=== PATIENT | male | born 1940 | race Caucasian/White ===

== ENCOUNTER 2023-08-18 07:42 | Observation (INO) ==
[2023-08-18] MEDS: NS 0.9% 1000 ml BAG 1,000 ML IV ONE (08:16)
[2023-08-18 08:20] LABS: ABS Basophils 0.1 10^3/uL (0.0-0.1); ABS Eosinophils 0.3 10^3/uL (0.0-0.5); ABS Lymphocytes 1.1 10^3/uL (1.0-4.8); ABS Monocytes 0.5 10^3/uL (0.0-1.1); ABS Neutrophils 5.5 10^3/uL (1.5-7.6); Eosinophil % 4.6 %; Hematocrit 35.1 % (38-53); Hemoglobin 11.5 g/dL (13.2-16.3); Lymphocyte % 14.3 %; Mean Corpuscular Hemoglobin 28.6 pg (27-33); Mean Corpuscular Hgb Conc 32.7 g/dL (31-36); Mean Corpuscular Volume 87.4 fL (80-97); Mean Platelet Volume 7.7 fL (7.5-11.2); Platelet Count 318 10^3/uL (150-450); Red Blood Count 4.02 10^6/uL (4.06-5.63); Red Cell Distribution Width 15.7 % (12-17); White Blood Count 7.4 10^3/uL (3.6-10.2)
[2023-08-18 08:36] LABS: INR 1.26 (0.83-1.13)
[2023-08-18 09:05] LABS: Albumin 4.1 g/dL (3.2-5.2); Albumin/Globulin Ratio 1.2 (1-3); Calcium 10.1 mg/dL (8.6-10.3); Creatinine, Serum 1.76 mg/dL (0.67-1.17); Globulin 3.5 g/dL (2-4); Total Bilirubin 0.2 mg/dL (0.2-1.0); Total Protein 7.6 g/dL (6.4-8.9); eGFR CKD-EPI 38.4 (>60)
[2023-08-18 09:20] LABS: TSH Ultra Thyroid Stim Horm 4.55 mcIU/mL (0.34-5.60)
[2023-08-18 10:06] LABS: High Sensitivity Troponin 1 Hr 7 pg/mL (<20)
[2023-08-18 10:08] LABS: Urine Appearance Extra Turbid; Urine Bilirubin Negative (Negative); Urine Blood 3+ (Negative); Urine Glucose Negative (Negative); Urine Ketones Negative (Negative); Urine Nitrite Negative (Negative); Urine Protein 2+ (>=100 mg/dL) (Negative); Urine Specific Gravity 1.013 (1.002-1.030); Urine Urobilinogen Negative (Negative); Urine pH 5.5 (5.0-8.0)
[2023-08-18 10:15] LABS: Urine Bacteria 1+ /HPF (Absent); Urine Red Blood Cell 3+(>10/hpf) /HPF (0-Trace); Urine White Blood Cell 3+(>20/hpf) /HPF (0-Trace)
[2023-08-18 10:29] LABS: Urine Color Yellow
[2023-08-18] MEDS: cefTRIAXone 1 gm/50 mL D5W 1 GM/50 ML BAG IV ONE (11:00)
[2023-08-18] MEDS ORDERED: Dextrose 50% Syringe 50 ml 25 GM/50 ML SYRINGE IV PUSH PRN (12:34)
[2023-08-18] MEDS: Heparin 5000 UNITS/ML 1 mL VIAL SUBCUT SCH (13:49)
[2023-08-18 14:14] LABS: C Reactive Protein 15.98 mg/L (<8.01)
[2023-08-18 14:24] LABS: Ferritin 71.1 ng/mL (24-336)
[2023-08-18 14:28] LABS: Folate 8.81 ng/mL (5.90-24.80)
[2023-08-18] MEDS: Lactated Ringers 1000 ml BAG 1,000 ML IV ONE (15:50)
[2023-08-19 07:30] LABS: ABS Basophils 0.1 10^3/uL (0.0-0.1); ABS Eosinophils 0.3 10^3/uL (0.0-0.5); ABS Lymphocytes 1.1 10^3/uL (1.0-4.8); ABS Monocytes 0.6 10^3/uL (0.0-1.1); ABS Neutrophils 4.8 10^3/uL (1.5-7.6); Eosinophil % 4.9 %; Hematocrit 31.8 % (38-53); Hemoglobin 10.5 g/dL (13.2-16.3); Lymphocyte % 15.7 %; Mean Corpuscular Hemoglobin 28.3 pg (27-33); Mean Corpuscular Hgb Conc 32.9 g/dL (31-36); Mean Platelet Volume 7.4 fL (7.5-11.2); Platelet Count 273 10^3/uL (150-450); Red Cell Distribution Width 15.3 % (12-17); White Blood Count 6.9 10^3/uL (3.6-10.2)
[2023-08-19 10:06] VITALS: BP 111/65
[2023-08-19 10:49] LABS: Calcium 9.6 mg/dL (8.6-10.3); Creatinine, Serum 1.42 mg/dL (0.67-1.17); Potassium 4.7 mmol/L (3.5-5.0); eGFR CKD-EPI 49.6 (>60)
[2023-08-19] MEDS ORDERED: cefTRIAXone 1 gm/50 mL D5W 1 GM/50 ML BAG IV SCH (11:00)
== END 2023-08-19 15:10 ==
LOC: EDHOLD 07:42 → ED 07:42 → SUATTDRO 12:11 → MEDTELE 14:48
PROVIDERS: ADMIT Internal Medicine; ATTEND Hospitalist

== ENCOUNTER 2023-11-18 09:16 | Inpatient (IN) ==
[2023-11-18] MEDS: Albuterol/Ipratropium NEB.SOL (2.5/0.5 MG) 3 ML NEB.SOLN INH ONE ×2 (10:02→17:17)
[2023-11-18 10:18] LABS: Venous Bicarbonate HCO3 24.2 mmol/L (24-28)
[2023-11-18 10:23] LABS: Hematocrit 35.7 % (38-53); Hemoglobin 11.4 g/dL (13.2-16.3); Mean Corpuscular Hemoglobin 26.2 pg (27-33); Mean Corpuscular Hgb Conc 31.8 g/dL (31-36); Mean Corpuscular Volume 82.3 fL (80-97); Mean Platelet Volume 7.5 fL (7.5-11.2); Platelet Count 570 10^3/uL (150-450); Red Blood Count 4.34 10^6/uL (4.06-5.63); Red Cell Distribution Width 16.2 % (12-17); White Blood Count 16.2 10^3/uL (3.6-10.2)
[2023-11-18] MEDS: Dexamethasone IV 4 MG/ML VIAL 1 ml VIAL IV SLOW PU ONE (10:26)
[2023-11-18 10:27] LABS: INR 1.32 (0.83-1.13)
[2023-11-18 11:19] LABS: Albumin 3.1 g/dL (3.2-5.2); Albumin/Globulin Ratio 0.9 (1-3); C Reactive Protein 90.51 mg/L (<8.01); Creatinine, Serum 1.52 mg/dL (0.67-1.17); Globulin 3.3 g/dL (2-4); Potassium 4.9 mmol/L (3.5-5.0); Total Bilirubin 0.3 mg/dL (0.2-1.0); Total Protein 6.4 g/dL (6.4-8.9); eGFR CKD-EPI 45.7 (>60)
[2023-11-18 11:39] LABS: ABS Basophils 0.1 10^3/uL (0.0-0.1); ABS Eosinophils 0.6 10^3/uL (0.0-0.5); ABS Lymphocytes 0.9 10^3/uL (1.0-4.8); ABS Monocytes 1.1 10^3/uL (0.0-1.1); ABS Neutrophils 13.6 10^3/uL (1.5-7.6); Eosinophil % 3.6 %; Lymphocyte % 5.4 %
[2023-11-18 11:59] LABS: High Sensitivity Troponin 1 Hr 13 pg/mL (<20)
[2023-11-18] MEDS: Iodixanol (CONTRAST) 320 MG/ML 100 ML SDV IV ONE (12:02)
[2023-11-18] MEDS: Azithromycin 500 mg/250 ml NS 500 MG/250 ML BAG IVPB ONE (12:33)
[2023-11-18] MEDS: cefTRIAXone 1 gm/50 mL D5W 1 GM/50 ML BAG IV ONE (12:35)
[2023-11-18] MEDS ORDERED: Magnesium Hydroxide LIQ 30 ML UDC PO PRN (14:32)
[2023-11-18] MEDS ORDERED: Dextrose 50% Syringe 50 ml 25 GM/50 ML SYRINGE IV PUSH PRN (14:39)
[2023-11-18] MEDS: Heparin 5000 UNITS/ML 1 mL VIAL SUBCUT SCH (16:22)
[2023-11-18 17:54] LABS: Glucose Confirmatory 469 mg/dL (70-100)
[2023-11-18] MEDS: Albuterol/Ipratropium NEB.SOL (2.5/0.5 MG) 3 ML NEB.SOLN INH SCH ×2 (18:19→19:15)
[2023-11-19] MEDS: Ondansetron 4 mg VIAL 2 MG/ML 2 ml VIAL IV PRN (02:28)
[2023-11-19] MEDS: guaiFENesin 100 mg/5 ml LIQ unit dose cup PO PRN (02:28)
[2023-11-19] MEDS ORDERED: Albuterol/Ipratropium NEB.SOL (2.5/0.5 MG) 3 ML NEB.SOLN INH PRN (08:11)
[2023-11-19] MEDS: Azithromycin 500 mg/250 ml NS 500 MG/250 ML BAG IVPB SCH ×2 (16:14→21:52)
[2023-11-19] MEDS: cefTRIAXone 1 gm/50 mL D5W 1 GM/50 ML BAG IV SCH ×2 (16:14→20:46)
[2023-11-20 06:04] LABS: Hematocrit 32.4 % (38-53); Hemoglobin 10.1 g/dL (13.2-16.3); Mean Corpuscular Hemoglobin 25.7 pg (27-33); Mean Corpuscular Volume 82.8 fL (80-97); Mean Platelet Volume 7.7 fL (7.5-11.2); Platelet Count 610 10^3/uL (150-450); Red Blood Count 3.91 10^6/uL (4.06-5.63); Red Cell Distribution Width 15.7 % (12-17); White Blood Count 14.5 10^3/uL (3.6-10.2)
[2023-11-20 06:28] LABS: Calcium 9.1 mg/dL (8.6-10.3); Creatinine, Serum 1.48 mg/dL (0.67-1.17); Potassium 5.5 mmol/L (3.5-5.0); eGFR CKD-EPI 47.2 (>60)
[2023-11-20 08:01] LABS: ABS Eosinophils 0.1 10^3/uL (0.0-0.5); ABS Lymphocytes 1.1 10^3/uL (1.0-4.8); ABS Monocytes 0.7 10^3/uL (0.0-1.1); ABS Neutrophils 12.6 10^3/uL (1.5-7.6); ABS Nucleated RBC 0.02 10^3/ul; Eosinophil % 0.4 %; Lymphocyte % 7.9 %; Nucleated Red Blood Cells % 0.1 %/100WBC (0.0-0.8)
[2023-11-20] MEDS: SODIUM ZIRCONIUM CYCLOSILICATE 10 GM PACKET PO ONE (12:04)
[2023-11-21] MEDS: Labetalol IV 5 MG/ML 20 ml VIAL IV PUSH ONE (01:34)
[2023-11-21] MEDS: hydrALAZINE 20 mg/ml 1 ML Vial IV IV SLOW PU PRN (05:36)
[2023-11-21 06:16] LABS: Hematocrit 34.3 % (38-53); Mean Corpuscular Hemoglobin 26.3 pg (27-33); Mean Corpuscular Hgb Conc 32.1 g/dL (31-36); Mean Corpuscular Volume 81.9 fL (80-97); Mean Platelet Volume 7.3 fL (7.5-11.2); Platelet Count 631 10^3/uL (150-450); Red Blood Count 4.18 10^6/uL (4.06-5.63); White Blood Count 10.4 10^3/uL (3.6-10.2)
[2023-11-21 06:39] LABS: Calcium 9.4 mg/dL (8.6-10.3); Creatinine, Serum 1.33 mg/dL (0.67-1.17); Magnesium 1.9 mg/dL (1.9-2.7); Potassium 5.2 mmol/L (3.5-5.0); eGFR CKD-EPI 53.7 (>60)
[2023-11-21 07:25] LABS: ABS Eosinophils 0.1 10^3/uL (0.0-0.5); ABS Lymphocytes 1.4 10^3/uL (1.0-4.8); ABS Monocytes 0.7 10^3/uL (0.0-1.1); ABS Neutrophils 8.2 10^3/uL (1.5-7.6); ABS Nucleated RBC 0.01 10^3/ul; Eosinophil % 0.6 %; Lymphocyte % 13.7 %; Nucleated Red Blood Cells % 0.1 %/100WBC (0.0-0.8)
[2023-11-21] MEDS ORDERED: hydrALAZINE 20 mg/ml 1 ML Vial IV IV SLOW PU PRN (08:57)
[2023-11-21] MEDS: Furosemide 20 mg/2 ml IV VIAL IV SLOW PU ONE (09:27)
[2023-11-21 13:47] VITALS: BP 148/88
== END 2023-11-21 15:05 | DRG 871 ==
LOC: ED 09:16 → EDHOLD 13:57 → SUATTDRO 13:57 → MED 11-19 13:38
PROVIDERS: ADMIT Internal Medicine; ATTEND Internal Medicine

== ENCOUNTER 2024-03-26 15:07 | Inpatient (IN) ==
[2024-03-26] MEDS: Lactated Ringers 1000 ml BAG IV.FLUID IV ONE (16:00)
[2024-03-26 16:11] LABS: Venous Bicarbonate HCO3 20.8 mmol/L (24-28)
[2024-03-26 16:15] LABS: ABS Basophils 0.1 10^3/uL (0.0-0.1); ABS Eosinophils 0.2 10^3/uL (0.0-0.5); ABS Lymphocytes 0.8 10^3/uL (1.0-4.8); ABS Monocytes 0.8 10^3/uL (0.0-1.1); ABS Neutrophils 9.8 10^3/uL (1.5-7.6); Hemoglobin 12.1 g/dL (13.2-16.3); Lymphocyte % 6.9 %; Mean Corpuscular Hgb Conc 33.5 g/dL (31-36); Mean Corpuscular Volume 80.4 fL (80-97); Mean Platelet Volume 7.7 fL (7.5-11.2); Platelet Count 377 10^3/uL (150-450); Red Blood Count 4.47 10^6/uL (4.06-5.63); Red Cell Distribution Width 16.2 % (12-17); White Blood Count 11.7 10^3/uL (3.6-10.2)
[2024-03-26 16:36] LABS: Urine Appearance Extra Turbid; Urine Bilirubin Negative (Negative); Urine Blood 2+ (Negative); Urine Glucose Negative (Negative); Urine Ketones Negative (Negative); Urine Nitrite Negative (Negative); Urine Protein 1+ (>=30 mg/dL) (Negative); Urine Specific Gravity 1.009 (1.002-1.030); Urine Urobilinogen Negative (Negative); Urine pH 5.5 (5.0-8.0)
[2024-03-26 16:42] LABS: Albumin 3.7 g/dL (3.2-5.2); Albumin/Globulin Ratio 1.2 (1-3); C Reactive Protein 101.7 mg/L (<8.01); Calcium 9.8 mg/dL (8.6-10.3); Creatinine, Serum 3.38 mg/dL (0.67-1.17); Globulin 3.2 g/dL (2-4); Magnesium 1.7 mg/dL (1.9-2.7); Potassium 4.8 mmol/L (3.5-5.0); Total Bilirubin 0.3 mg/dL (0.2-1.0); Total Protein 6.9 g/dL (6.4-8.9); eGFR CKD-EPI 17.5 (>60)
[2024-03-26 16:51] LABS: INR 1.18 (0.85-1.14)
[2024-03-26 17:02] LABS: Urine Bacteria 2+ /HPF (Absent); Urine Benzodiazepine Screen None Detected (None Detect); Urine Buprenorphine Screen None Detected (None Detect); Urine Cannabinoids Screen None Detected (None Detect); Urine Fentanyl Screen None Detected (None Detect); Urine Hydrocodone Screen None Detected (None Detect); Urine Opiates Screen None Detected (None Detect); Urine Red Blood Cell 3+(>10/hpf) /HPF (0-Trace); Urine White Blood Cell 3+(>20/hpf) /HPF (0-Trace)
[2024-03-26 17:09] LABS: Urine Color Light-Yellow
[2024-03-26] MEDS ORDERED: cefTRIAXone 2 GM ADDV.VIAL 2 GM in NS 0.9% 100 ml BAG 100 ML IV ONE (17:38)
[2024-03-26 17:47] LABS: High Sensitivity Troponin 1 Hr 11 pg/mL (<20)
[2024-03-26] MEDS: cefTRIAXone 2 gm/50 mL D5W 2 GM/50 ML BAG IV ONE (18:28)
[2024-03-27] MEDS ORDERED: Albuterol 2.5mg/3 ml (0.083%) NEB.SOLN INH PRN (03:35)
[2024-03-27] MEDS ORDERED: Magnesium Hydroxide LIQ 30 ML UDC PO PRN (03:47)
[2024-03-27] MEDS ORDERED: Dextrose 50% Syringe 50 ml 25 GM/50 ML SYRINGE IV PUSH PRN (04:42)
[2024-03-27 04:58] LABS: ABS Eosinophils 0.1 10^3/uL (0.0-0.5); ABS Lymphocytes 0.8 10^3/uL (1.0-4.8); ABS Monocytes 0.7 10^3/uL (0.0-1.1); ABS Neutrophils 12.8 10^3/uL (1.5-7.6); Eosinophil % 0.9 %; Hematocrit 37.1 % (38-53); Hemoglobin 12.3 g/dL (13.2-16.3); Lymphocyte % 5.6 %; Mean Corpuscular Hemoglobin 26.6 pg (27-33); Mean Corpuscular Hgb Conc 33.1 g/dL (31-36); Mean Corpuscular Volume 80.5 fL (80-97); Mean Platelet Volume 7.9 fL (7.5-11.2); Platelet Count 346 10^3/uL (150-450); Red Blood Count 4.61 10^6/uL (4.06-5.63); Red Cell Distribution Width 16.6 % (12-17); White Blood Count 14.4 10^3/uL (3.6-10.2)
[2024-03-27 05:08] LABS: Albumin 3.3 g/dL (3.2-5.2); Calcium 9.4 mg/dL (8.6-10.3); Creatinine, Serum 3.26 mg/dL (0.67-1.17); Globulin 3.3 g/dL (2-4); Potassium 4.5 mmol/L (3.5-5.0); Total Bilirubin 0.3 mg/dL (0.2-1.0); Total Protein 6.6 g/dL (6.4-8.9); eGFR CKD-EPI 18.3 (>60)
[2024-03-27 06:02] LABS: Activated Partial Thrombo Time 29.7 seconds (26.0-38.0); INR 1.18 (0.85-1.14)
[2024-03-27] MEDS ORDERED: Heparin 5000 UNITS/ML 1 mL VIAL SUBCUT SCH (09:00)
[2024-03-27] MEDS: Lactated Ringers 1000 ml BAG 1,000 ML IV ONE ×2 (09:03→09:05)
[2024-03-27] MEDS: NF: Brinzolamid/Brimonidin OPH(NF) 1 DROP BTL LEFT EYE SCH (10:09)
[2024-03-27] MEDS: Lactated Ringers 1000 ml BAG 1,000 ML IV SCH (15:32)
[2024-03-27 18:44] LABS: Calcium 9.4 mg/dL (8.6-10.3); Creatinine, Serum 2.87 mg/dL (0.67-1.17); Magnesium 1.6 mg/dL (1.9-2.7); Potassium 4.3 mmol/L (3.5-5.0); eGFR CKD-EPI 21.3 (>60)
[2024-03-27] MEDS: Magnesium Sulfate 2 gm BAG 2 GM/50 ML BAG IVPB ONE (21:03)
[2024-03-27] MEDS: NETARSUDIL 0.02% LEFT EYE SCH (21:06)
[2024-03-28] MEDS: Lactated Ringers 1000 ml BAG 1,000 ML IV SCH (02:11)
[2024-03-28 06:01] LABS: ABS Basophils 0.1 10^3/uL (0.0-0.1); ABS Eosinophils 0.4 10^3/uL (0.0-0.5); ABS Lymphocytes 0.9 10^3/uL (1.0-4.8); ABS Neutrophils 13.1 10^3/uL (1.5-7.6); ABS Nucleated RBC 0.01 10^3/ul; Eosinophil % 2.6 %; Hemoglobin 11.4 g/dL (13.2-16.3); Lymphocyte % 5.7 %; Mean Corpuscular Hemoglobin 26.2 pg (27-33); Mean Corpuscular Hgb Conc 32.6 g/dL (31-36); Mean Corpuscular Volume 80.3 fL (80-97); Mean Platelet Volume 8.3 fL (7.5-11.2); Platelet Count 365 10^3/uL (150-450); Red Blood Count 4.36 10^6/uL (4.06-5.63); Red Cell Distribution Width 16.5 % (12-17); White Blood Count 15.5 10^3/uL (3.6-10.2)
[2024-03-28 06:07] LABS: Calcium 9.4 mg/dL (8.6-10.3); Creatinine, Serum 2.79 mg/dL (0.67-1.17); Potassium 4.3 mmol/L (3.5-5.0); eGFR CKD-EPI 22.1 (>60)
[2024-03-29] MEDS: cefTRIAXone 1 gm/50 mL D5W 1 GM/50 ML BAG IV SCH (14:44)
[2024-03-29] MEDS: Ciprofloxacin 0.3% OPTH.SOL BTL LEFT EYE SCH (17:32)
[2024-03-30 05:55] LABS: ABS Basophils 0.1 10^3/uL (0.0-0.1); ABS Eosinophils 0.4 10^3/uL (0.0-0.5); ABS Lymphocytes 0.8 10^3/uL (1.0-4.8); ABS Monocytes 0.6 10^3/uL (0.0-1.1); ABS Neutrophils 7.5 10^3/uL (1.5-7.6); Eosinophil % 4.4 %; Hemoglobin 11.2 g/dL (13.2-16.3); Mean Corpuscular Hemoglobin 26.3 pg (27-33); Mean Corpuscular Hgb Conc 31.9 g/dL (31-36); Mean Corpuscular Volume 82.4 fL (80-97); Platelet Count 309 10^3/uL (150-450); Red Blood Count 4.25 10^6/uL (4.06-5.63); Red Cell Distribution Width 16.4 % (12-17); White Blood Count 9.4 10^3/uL (3.6-10.2)
[2024-03-30 06:20] LABS: Calcium 9.1 mg/dL (8.6-10.3); Creatinine, Serum 2.39 mg/dL (0.67-1.17); Potassium 4.1 mmol/L (3.5-5.0); eGFR CKD-EPI 26.6 (>60)
[2024-03-30] MEDS: Lactated Ringers 1000 ml BAG 1,000 ML IV SCH (12:05)
[2024-03-31 06:28] LABS: Hematocrit 35.6 % (38-53); Hemoglobin 11.4 g/dL (13.2-16.3); Mean Corpuscular Hemoglobin 26.8 pg (27-33); Mean Corpuscular Hgb Conc 31.9 g/dL (31-36); Mean Corpuscular Volume 84.2 fL (80-97); Mean Platelet Volume 7.4 fL (7.5-11.2); Platelet Count 285 10^3/uL (150-450); Red Blood Count 4.23 10^6/uL (4.06-5.63); White Blood Count 8.4 10^3/uL (3.6-10.2)
[2024-03-31 07:20] LABS: Calcium 9.1 mg/dL (8.6-10.3); Creatinine, Serum 2.39 mg/dL (0.67-1.17); Magnesium 1.7 mg/dL (1.9-2.7); Potassium 4.2 mmol/L (3.5-5.0); eGFR CKD-EPI 26.6 (>60)
[2024-03-31] MEDS: Magnesium Sulfate 2 gm BAG 2 GM/50 ML BAG IVPB ONE (11:54)
[2024-03-31] MEDS: ceFAZolin 1 GM ADVAN 1 GM ADDV.VIAL IVPB ONE (15:26)
[2024-03-31] MEDS: fentaNYL 250 mcg/5 ml 50 MCG/ML 5 ml VIAL (250 MCG) ONE (15:26)
[2024-04-01 06:36] LABS: ABS Basophils 0.1 10^3/uL (0.0-0.1); ABS Eosinophils 0.3 10^3/uL (0.0-0.5); ABS Lymphocytes 0.7 10^3/uL (1.0-4.8); ABS Monocytes 0.5 10^3/uL (0.0-1.1); ABS Neutrophils 8.6 10^3/uL (1.5-7.6); Eosinophil % 2.8 %; Hematocrit 34.2 % (38-53); Hemoglobin 11.3 g/dL (13.2-16.3); Lymphocyte % 6.7 %; Mean Corpuscular Hemoglobin 26.6 pg (27-33); Mean Corpuscular Hgb Conc 32.9 g/dL (31-36); Mean Corpuscular Volume 80.7 fL (80-97); Mean Platelet Volume 7.4 fL (7.5-11.2); Platelet Count 359 10^3/uL (150-450); Red Blood Count 4.24 10^6/uL (4.06-5.63); Red Cell Distribution Width 16.7 % (12-17); White Blood Count 10.1 10^3/uL (3.6-10.2)
[2024-04-01 06:55] LABS: Calcium 9.1 mg/dL (8.6-10.3); Creatinine, Serum 2.2 mg/dL (0.67-1.17); Magnesium 1.8 mg/dL (1.9-2.7); Potassium 3.6 mmol/L (3.5-5.0); eGFR CKD-EPI 29.4 (>60)
[2024-04-01] MEDS: Magnesium Sulfate 2 gm BAG 2 GM/50 ML BAG IVPB ONE (16:26)
[2024-04-02 05:58] LABS: ABS Eosinophils 0.5 10^3/uL (0.0-0.5); ABS Monocytes 0.5 10^3/uL (0.0-1.1); ABS Neutrophils 6.6 10^3/uL (1.5-7.6); ABS Nucleated RBC 0.01 10^3/ul; Eosinophil % 5.6 %; Hematocrit 32.4 % (38-53); Hemoglobin 10.8 g/dL (13.2-16.3); Lymphocyte % 11.3 %; Mean Corpuscular Hemoglobin 26.6 pg (27-33); Mean Corpuscular Hgb Conc 33.4 g/dL (31-36); Mean Corpuscular Volume 79.8 fL (80-97); Mean Platelet Volume 7.6 fL (7.5-11.2); Nucleated Red Blood Cells % 0.1 %/100WBC (0.0-0.8); Platelet Count 329 10^3/uL (150-450); Red Blood Count 4.06 10^6/uL (4.06-5.63); Red Cell Distribution Width 16.3 % (12-17); White Blood Count 8.6 10^3/uL (3.6-10.2)
[2024-04-02 06:34] LABS: Creatinine, Serum 2.02 mg/dL (0.67-1.17); Magnesium 2.1 mg/dL (1.9-2.7); Potassium 3.4 mmol/L (3.5-5.0); eGFR CKD-EPI 32.5 (>60)
[2024-04-02] MEDS: Potassium Chlor 20 meq TAB.ER PO ONE (08:52)
[2024-04-02 12:35] LABS: Rapid COVID-19 Molecular Undetected (Undetected)
[2024-04-02 13:55] VITALS: BP 127/63
== END 2024-04-02 14:00 | DRG 689 ==
LOC: ED 15:07 → EDHOLD 15:07 → MEDTELE 03-27 00:01 → SUATTDRO 03-27 14:22
PROVIDERS: ADMIT Internal Medicine; ATTEND Student in an Organized Health Care Education/Training Program

== ENCOUNTER 2024-04-19 14:01 | Observation (INO) ==
[2024-04-19 16:25] LABS: ABS Basophils 0.1 10^3/uL (0.0-0.1); ABS Eosinophils 0.1 10^3/uL (0.0-0.5); ABS Lymphocytes 0.6 10^3/uL (1.0-4.8); ABS Monocytes 0.5 10^3/uL (0.0-1.1); ABS Neutrophils 10.9 10^3/uL (1.5-7.6); Eosinophil % 0.5 %; Hematocrit 32.7 % (38-53); Hemoglobin 10.4 g/dL (13.2-16.3); Lymphocyte % 4.8 %; Mean Corpuscular Hemoglobin 26.1 pg (27-33); Mean Corpuscular Hgb Conc 31.8 g/dL (31-36); Mean Corpuscular Volume 82.1 fL (80-97); Mean Platelet Volume 7.5 fL (7.5-11.2); Platelet Count 345 10^3/uL (150-450); Red Blood Count 3.98 10^6/uL (4.06-5.63); Red Cell Distribution Width 17.3 % (12-17); White Blood Count 12.1 10^3/uL (3.6-10.2)
[2024-04-19 17:25] LABS: Calcium 9.7 mg/dL (8.6-10.3); Creatinine, Serum 1.88 mg/dL (0.67-1.17); Potassium 4.8 mmol/L (3.5-5.0); eGFR CKD-EPI 35.4 (>60)
[2024-04-19] MEDS ORDERED: Morphine 2 MG/ML SYRINGE ONE (17:36)
[2024-04-19] MEDS ORDERED: Albuterol HFA INHALER 8 gm MDI INH PRN (18:27)
[2024-04-19] MEDS ORDERED: Magnesium Hydroxide LIQ 30 ML UDC PO PRN (18:27)
[2024-04-19] MEDS: [UNRECOGNIZED DRUG - REMARK] LEFT EYE SCH (21:05)
[2024-04-19] MEDS: [UNRECOGNIZED DRUG - REMARK] LEFT EYE SCH (21:09)
[2024-04-19] MEDS: Enoxaparin 40 MG/0.4 ML SYR SUBCUT ONE (22:45)
[2024-04-20 05:25] LABS: ABS Basophils 0.1 10^3/uL (0.0-0.1); ABS Eosinophils 0.2 10^3/uL (0.0-0.5); ABS Monocytes 0.6 10^3/uL (0.0-1.1); ABS Neutrophils 7.3 10^3/uL (1.5-7.6); Eosinophil % 1.9 %; Hematocrit 32.2 % (38-53); Hemoglobin 10.2 g/dL (13.2-16.3); Lymphocyte % 10.6 %; Mean Corpuscular Hemoglobin 25.7 pg (27-33); Mean Corpuscular Hgb Conc 31.8 g/dL (31-36); Mean Corpuscular Volume 80.9 fL (80-97); Mean Platelet Volume 7.4 fL (7.5-11.2); Platelet Count 348 10^3/uL (150-450); Red Blood Count 3.98 10^6/uL (4.06-5.63); White Blood Count 9.1 10^3/uL (3.6-10.2)
[2024-04-20 06:06] LABS: Calcium 10.3 mg/dL (8.6-10.3); Creatinine, Serum 1.74 mg/dL (0.67-1.17); Magnesium 1.6 mg/dL (1.9-2.7); Potassium 4.5 mmol/L (3.5-5.0); eGFR CKD-EPI 38.9 (>60)
[2024-04-20 13:55] LABS: INR 1.21 (0.85-1.14)
[2024-04-20] MEDS: Magnesium Sulfate 2 gm BAG 2 GM/50 ML BAG IVPB ONE (18:25)
[2024-04-20] MEDS: fentaNYL 100 mcg/2 ml 50 MCG/ML VIAL ONE (18:26)
[2024-04-21 05:42] LABS: ABS Eosinophils 0.1 10^3/uL (0.0-0.5); ABS Lymphocytes 0.6 10^3/uL (1.0-4.8); ABS Monocytes 0.8 10^3/uL (0.0-1.1); ABS Nucleated RBC 0.01 10^3/ul; Hematocrit 32.9 % (38-53); Hemoglobin 10.6 g/dL (13.2-16.3); Lymphocyte % 6.2 %; Mean Corpuscular Hemoglobin 26.1 pg (27-33); Mean Corpuscular Hgb Conc 32.4 g/dL (31-36); Mean Corpuscular Volume 80.7 fL (80-97); Mean Platelet Volume 7.8 fL (7.5-11.2); Nucleated Red Blood Cells % 0.1 %/100WBC (0.0-0.8); Platelet Count 322 10^3/uL (150-450); Red Blood Count 4.08 10^6/uL (4.06-5.63); White Blood Count 9.4 10^3/uL (3.6-10.2)
[2024-04-21 06:43] LABS: Calcium 9.5 mg/dL (8.6-10.3); Creatinine, Serum 1.65 mg/dL (0.67-1.17); Potassium 4.6 mmol/L (3.5-5.0); eGFR CKD-EPI 41.5 (>60)
[2024-04-21] MEDS: NS 0.9% 1000 ml BAG 1,000 ML IV SCH (12:23)
[2024-04-22 09:32] VITALS: BP 148/85
[2024-04-22] MEDS: Glycerin ADULT 2.4 gm SUPP PR ONE (10:43)
== END 2024-04-22 13:50 | disposition home or self-care (01) ==
LOC: ED 14:01 → EDHOLD 14:01 → SUATTDRO 18:24 → MED 04-20 16:31
PROVIDERS: ADMIT Hospitalist; ATTEND Student in an Organized Health Care Education/Training Program